=== PATIENT | male | born 1955 ===

== ENCOUNTER 2016-07-30 07:16 | Day surgery (SDC) | payer MEDICARE ==
[2016-07-30] MEDS ORDERED: Lactated Ringer's 500 ML IV ONE (07:49)
[2016-07-30 09:54] VITALS: TEMP 96.8
[2016-07-30 10:07] VITALS: BP 134/74; PULSE 74; RESP 13; O2SAT 100
== END 2016-07-30 10:19 | disposition home or self-care (01) ==
LOC: H.ENDO 07:16
PROVIDERS: ATTEND Internal Medicine Gastroenterology
DX: Z12.11 Encounter for screening for malignant neoplasm of colon (principal); D12.6 Benign neoplasm of colon, unspecified; K64.8 Other hemorrhoids; E78.00 Pure hypercholesterolemia, unspecified
CPT/HCPCS: 45380; 45385; 88305; J7120